=== PATIENT | female | born 1990 | race Native Hawaiian/Other Pacific Islander ===

== ENCOUNTER 2017-02-17 16:35 | Emergency (ER) | payer OTHER ==
[2017-02-17 16:51] VITALS: BP 124/67; PULSE 78; RESP 16; TEMP 98.7
[2017-02-17] MEDS ORDERED: ACETAMINOPHEN TAB 500 MG TAB PO STA (17:13)
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
--- NOTE | 2017-02-17 18:05 | XR ---
EXAMINATION TYPE: XR elbow complete RT DATE OF EXAM: 02/17/2017 5:55 PM CLINICAL HISTORY: pain TECHNIQUE: Frontal, lateral and oblique images of the right elbow are obtained. COMPARISON: None. FINDINGS: There is no acute fracture/dislocation evident of the elbow. No abnormal fat pad signs ar e seen. The overlying soft tissue appears unremarkable. IMPRESSION: There is no acute fracture or dislocation of the elbow. ICD 10 NO FRACTURE, INITIAL EVALUATION
== END 2017-02-17 18:24 | disposition home or self-care (01) ==
LOC: EC 16:35
DX: S50.11XA Contusion of right forearm, initial encounter (principal); S09.90XA Unspecified injury of head, initial encounter; M54.2 Cervicalgia; Y04.0XXA Assault by unarmed brawl or fight, initial encounter; Y00.XXXA Assault by blunt object, initial encounter; Y92.69 Other specified industrial and construction area as the place of occurrence of the external cause; Y99.0 Civilian activity done for income or pay
CPT/HCPCS: 70450; 72125; 99284

== ENCOUNTER → 2017-09-01 | Outpatient (CLI) | payer OTHER ==
[2017-09-01 12:11] VITALS: BP 137/82; PULSE 135; RESP 16; TEMP 97.8; BMI 47.0
[2017-09-01 14:14] LABS: HCT 42.7 % (34.0-46.0); HGB 13.9 gm/dL (11.4-16.0); MCHC 32.5 g/dL (31.0-37.0); MCV 92.5 fL (80.0-100.0); Mean Platelet Volume 10.6; Platelet Count 222 k/uL (150-450); RBC 4.62 m/uL (3.80-5.40); RDW 13.7 % (11.5-15.5); WBC 8.9 k/uL (3.8-10.6)
[2017-09-01 14:30] LABS: ALT 134 U/L (9-52); AST 51 U/L (14-36); Albumin 4.5 g/dL (3.5-5.0); Alkaline Phosphatase 60 U/L (38-126); Anion Gap 12 mmol/L; Blood Urea Nitrogen 12 mg/dL (7-17); Calcium 9.8 mg/dL (8.4-10.2); Carbon Dioxide 24 mmol/L (22-30); Chloride 106 mmol/L (98-107); Cholesterol 160 mg/dL (<200); Glucose 109 mg/dL (74-99); HDL Cholesterol 51 mg/dL (40-60); LDL Cholesterol,Calculated 96 mg/dL (0-99); Potassium 4.4 mmol/L (3.5-5.1); Sodium 142 mmol/L (137-145); Total Bilirubin 0.5 mg/dL (0.2-1.3); Total Protein 7.4 g/dL (6.3-8.2); Triglycerides 66 mg/dL (<150)
[2017-09-01 18:40] LABS: Iron Saturation 34.08 (12.00-45.00)
[2017-09-01 19:25] LABS: Folate, Serum 13.4 ng/mL; Vitamin D 25 Hydroxy 6.8 ng/mL (30.0-100.0)
[2017-09-01 20:43] LABS: Hemoglobin A1C 5.5 % (4.0-6.0)
[2017-09-06 11:28] LABS: Anabasine Urine <2.0 ng/mL (<2.0)
--- NOTE | 2017-10-30 16:03 | P.HPBAR ---
Bariatric H&P - History & Physicial H&P Date: 09/01/17 History & Physicial: Visit/CC: initial transfer from dr. Foy Patient initial contact: Initial weight: 127.459 kg Initial weight in pounds: 281.00 Height: 5 ft 3 in Initial BMI: 49.7 Last weight: Current weight: 120.429 kg Current weight in pounds: 265.00 Current BMI: 47.0 [place] body weight (based on NIH guidelines): 52.163 kg Excess body weight loss: 9.6% The patient is a 26 year-old F who presents for Bariatric Assessment. DATE OF SERVICE: 09/01/2017 REASON FOR CONSULTATION: Initial bariatric evaluation. HISTORY OF PRESENT ILLNESS: The patient is a 26-year-old female who presents with history of long-standing morbid obesity. Her highest weight was 293 pounds. She has tried medical supervised weight loss including Adipex where she lost initially 70 pounds. Morbid obesity runs in the family. She reports gastroesophageal reflux disease. She reports chronic diarrhea. No reports of inflammatory bowel disease. She has family history of diabetes type 2. She did have a grandfather who had multiple DVTs. She denies any food ALLERGIES. No reports of gallbladder disease in her family. No reports of Crohn's disease or ulcerative colitis or lupus. No reports of gastric or esophageal cancer. She is looking into sleeve gastrectomy. She has been using a food diary Journal for 3 months. She reports chronic lower back pain including right knee pain, thigh pain, ankle swelling, urinary incontinence and panniculitis from her morbid obesity. At her height of 5 foot 3 inches, her ideal body weight is 140 pounds. Body mass index is 52.1 to 47.0. She is 125 pounds overweight. She has lost 15 pounds in 2 months. PAST MEDICAL HISTORY: 1. Morbid obesity due to excess calories. 2. Body mass index of 52 to 47.0. 3. Osteoarthritis of the knees. 4. Osteoarthritis of the hips. 5. Dietary surveillance and counseling. 6. Gastroesophageal reflux disease. 7. Stress urinary incontinence. PAST SURGICAL HISTORY: 1. Adenoidectomy. 2. section. 3. Tonsillectomy. HOME MEDICATIONS: 1. Motrin. 2. Phentermine ALLERGIES: Denies. SOCIAL HISTORY: No active tobacco use. FAMILY HISTORY: No family history of ulcerative colitis disease or Crohn's disease. Family history of morbid obesity. No lupus in family. No reports of stomach or esophageal cancer. Family history of diabetes. REVIEW OF ORGAN SYSTEMS: CONSTITUTIONAL: At her height of 5 foot 3 inches, her ideal body weight is 140 pounds. Body mass index is 52.1 to 47.0. She is 125 pounds overweight. She has lost 15 pounds in 2 months. Her highest weight was 293 pounds. HEENT: Denies any active troubles with vision or hearing. No troubles with swallowing. ENDOCRINE: No diabetes. No hypothyroidism. CARDIOVASCULAR: No reports of palpitations or heart attacks or chest pain. History of hypertension. RESPIRATORY: Has daytime somnolence including snoring and sleep apnea. No asthma. GI: Denies any bright red blood per rectum. Does have gastroesophageal reflux disease as described above. GENITOURINARY: Has stress urinary incontinence. No reports of recent UTIs. MUSCULOSKELETAL: Has lower back pain and joint pain. Has osteoarthritis of the hips and knees. NEURO: No headaches. No seizure disorders. PSYCH: No depression without suicidal ideation. Has anxiety. RHEUMATOLOGIC: No lupus. No rheumatoid arthritis. HEMATOLOGIC: Denies any abnormal bleeding or bruising. No personal history of DVTs. SKIN: No rash. No skin cancer. PHYSICAL EXAM: VITAL SIGNS: Height 5 foot 3 inches, weight 265 pounds. BMI 47.0. Vital Signs Temp 97.8 F 09/01/17 12:08 Pulse 135 H 09/01/17 12:08 Resp 16 09/01/17 12:08 BP 137/82 09/01/17 12:08 Pulse Ox GENERAL: Well-developed in no acute distress. HEENT: No scleral icterus. Extraocular movements grossly intact. Hears conversational speech. No nasal drainage. NECK: Supple without lymphadenopathy. CHEST: Nonlabored respirations with equal bilateral excursions. CARDIOVASCULAR: Tachycardic. Distal 2+ pulses. ABDOMEN: Obese, soft, nontender, nondistended. MUSCULOSKELETAL: No clubbing, cyanosis. Gross strength 5/5 distal lower extremities. 1+ pre-tibial pitting edema. NEURO: No focal or lateralizing signs. Cranial nerves 2 through 12 grossly within normal limits. PSYCH: Appropriate affect. Alert and oriented to person, place and time. SKIN: Good skin turgor. Well perfused. ASSESSMENT: 1. Morbid obesity due to excess calories. 2. Body mass index of 52 to 47.0. 3. Osteoarthritis of the knees. 4. Osteoarthritis of the hips. 5. Dietary surveillance and counseling. 6. Tachycardia. 7. Gastroesophageal reflux disease. 8. Stress urinary incontinence. PLAN: 1. Surgical options including a band, gastric bypass, sleeve gastrectomy were described in detail. Alternatives such as gastric balloon including duodenal switch were described. 2. The [place] bariatric surgical collaborative data and outcomes calculator were described with surgical options. 3. Recommend a bariatric metabolic panel to evaluate for micro- including macronutrient deficiencies. 4. For history of daytime somnolence, recommend evaluation and treatment for sleep apnea. 5. Dietary surveillance and counseling was reviewed, I have asked increased protein intake to at least 60 grams daily. Approximately 10% weight loss recommended at least over 6 months down to 263 pounds. She has already lost 15 pounds. 6. Will need cardiac risk assessment for her tachycardia. 7. Recommend medical risk assessment. 8. Psych assessment per insurance guidelines. 9. Follow up upon completion of upper endoscopy. 10. Recommend food journal. 11. Will need urine drug screen per insurance guidelines. 12. Recommend 12-lead EKG with history of hypertensive heart disease. 13. Recommend upper endoscopy for history of esophageal reflux disease. Thank you for this consultation. Laboratory Last Values WBC 8.9 k/uL (3.8-10.6) 09/01/17 13:28 RBC 4.62 m/uL (3.80-5.40) 09/01/17 13:28 Hgb 13.9 gm/dL (11.4-16.0) 09/01/17 13:28 Hct 42.7 % (34.0-46.0) 09/01/17 13:28 MCV 92.5 fL (80.0-100.0) 09/01/17 13:28 MCH 30.0 pg (25.0-35.0) 09/01/17 13:28 MCHC 32.5 g/dL (31.0-37.0) 09/01/17 13:28 RDW 13.7 % (11.5-15.5) 09/01/17 13:28 Plt Count 222 k/uL (150-450) 09/01/17 13:28 Sodium 142 mmol/L (137-145) 09/01/17 13:28 Potassium 4.4 mmol/L (3.5-5.1) 09/01/17 13:28 Chloride 106 mmol/L (98-107) 09/01/17 13:28 Carbon Dioxide 24 mmol/L (22-30) 09/01/17 13:28 Anion Gap 12 mmol/L 09/01/17 13:28 BUN 12 mg/dL (7-17) 09/01/17 13:28 Creatinine 0.80 mg/dL (0.52-1.04) 09/01/17 13:28 Est GFR (MDRD) Af Amer >60 (>60 ml/min/1.73 sqM) 09/01/17 13:28 Est GFR (MDRD) Non-Af >60 (>60 ml/min/1.73 sqM) 09/01/17 13:28 Glucose 109 mg/dL (74-99) H 09/01/17 13:[address] Glu mg/dL 111 09/01/17 13:28 Hemoglobin A1c 5.5 % (4.0-6.0) 09/01/17 13:28 Calcium 9.8 mg/dL (8.4-10.2) 09/01/17 13:28 Iron 107 ug/dL (50-170) 09/01/17 13:28 TIBC 314 ug/dL (228-460) 09/01/17 13:28 Iron Saturation 34.08 (12.00-45.00) 09/01/17 13:28 Ferritin 64.3 ng/mL (10.0-291.0) 09/01/17 13:28 Total Bilirubin 0.5 mg/dL (0.2-1.3) 09/01/17 13:28 AST 51 U/L (14-36) H 09/01/17 13:28 ALT 134 U/L (9-52) H 09/01/17 13:28 Alkaline Phosphatase 60 U/L (38-126) 09/01/17 13:28 Total Protein 7.4 g/dL (6.3-8.2) 09/01/17 13:28 Albumin 4.5 g/dL (3.5-5.0) 09/01/17 13:28 Triglycerides 66 mg/dL (<150) 09/01/17 13:28 Cholesterol 160 mg/dL (<200) 09/01/17 13:28 LDL Cholesterol, Calc 96 mg/dL (0-99) 09/01/17 13:28 HDL Cholesterol 51 mg/dL (40-60) 09/01/17 13:28 Vitamin B1 36 ug/L (38-122) L 09/01/17 13:28 Vitamin B12 519.0 pg/mL (200.0-944.0) 09/01/17 13:28 Vitamin D 25-Hydroxy 6.8 ng/mL (30.0-100.0) L 09/01/17 13:28 Folate 13.4 ng/mL 09/01/17 13:28 TSH 0.852 mIU/L (0.465-4.680) 09/01/17 13:28 Urine Cotinine <5.0 ng/mL (<5.0) 09/01/17 13:28 Urine Nicotine <2.0 ng/mL (<2.0) 09/01/17 13:28 Urine Anabasine <2.0 ng/mL (<2.0) 09/01/17 13:28 EKG EKG PERFORMED 09/01/17 13:28 Miscellaneous Test DrugScrn,Pain Manage 09/01/17 13:51 Misc Test Result See comment 09/01/17 13:51 Thiamine is low, vitamin D is severely low, Elevated AST and ALT. Recommend correction of all nutritional deficiencies including ultrasound of the liver for fatty liver disease. Past Medical History Past Medical History: No Reported History, Osteoarthritis (OA) (Pain feet, knees ) Additional Past Medical History / Comment(s): Urinary stress incontinence History of Any Multi-Drug Resistant Organisms: None Reported Past Surgical History: Adenoidectomy, Section, Tonsillectomy Past Anesthesia/Blood Transfusion Reactions: No Reported Reaction Smoking Status: Never smoker - Past Family History Mother History Unknown: Yes Family Medical History: Diabetes Mellitus Surgical - Exam Vital Signs Temp Pulse Resp BP 97.8 F 135 H 16 137/82 09/01/17 12:08 09/01/17 12:08 09/01/17 12:08 09/01/17 12:08 Results - Labs 09/01/17 13:28 09/01/17 13:28 Bariatric Checklist Checklist: Plan: Checklist: EGD: 1. Hiatal hernia: 2. H. Pylori: HgbA1c: Vitamin D: Smoking: Never smoker Primary care physician referral: Psychiatry clearance: Cardiology clearance: Sleep study: Diet journal: VTE risk score: VTE risk level: Rehab needs at discharge:
== END | disposition home or self-care (01) ==
LOC: BARWHC3 11:49
PROVIDERS: ATTEND Surgery Plastic and Reconstructive Surgery
DX: Z48.815 Encounter for surgical aftercare following surgery on the digestive system (principal); E66.01 Morbid (severe) obesity due to excess calories; M17.0 Bilateral primary osteoarthritis of knee; M16.0 Bilateral primary osteoarthritis of hip; R00.0 Tachycardia, unspecified; K21.9 Gastro-esophageal reflux disease without esophagitis; N39.3 Stress incontinence (female) (male); M19.90 Unspecified osteoarthritis, unspecified site; E89.1 Postprocedural hypoinsulinemia; D50.8 Other iron deficiency anemias; E44.0 Moderate protein-calorie malnutrition; E55.9 Vitamin D deficiency, unspecified; E11.9 Type 2 diabetes mellitus without complications; Z68.42 Body mass index [BMI] 45.0-49.9, adult; Z90.89 Acquired absence of other organs; Z71.3 Dietary counseling and surveillance; Z79.1 Long term (current) use of non-steroidal anti-inflammatories (NSAID); Z98.890 Other specified postprocedural states
CPT/HCPCS: 84425; 80061; 80053; 82607; 82728; 82746; 83540; 83550; 84443; 85027; 82306; 80307; 83036; 93005; G0480 ×2; G0463; 80323; 80356; 99211

== ENCOUNTER 2018-03-18 22:15 | Emergency (ER) | payer OTHER ==
[2018-03-18 22:28] VITALS: RESP 18
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
[2018-03-18] MEDS ORDERED: ACET/COD 300 MG/30 MG STARTER PACK 6 TAB BTL PO STA (23:46)
[2018-03-18] MEDS ORDERED: HYDROcodone/APAP 10-325MG 1 EACH TAB PO ONE (23:46)
[2018-03-19 00:15] VITALS: BP 134/61; PULSE 71; TEMP 98
== END 2018-03-19 00:14 | disposition home or self-care (01) ==
LOC: EC 22:15
DX: S52.92XD Unspecified fracture of left forearm, subsequent encounter for closed fracture with routine healing (principal); Z79.3 Long term (current) use of hormonal contraceptives; Z79.899 Other long term (current) drug therapy; V89.2XXD Person injured in unspecified motor-vehicle accident, traffic, subsequent encounter
CPT/HCPCS: 29125; 99283

== ENCOUNTER 2018-03-24 20:12 | Emergency (ER) | payer OTHER ==
[2018-03-24 20:20] VITALS: TEMP 98.5
[2018-03-24] MEDS ORDERED: MORPHINE SULFATE 2 MG/ML SYRINGE IM STA (20:45)
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
[2018-03-24 21:54] VITALS: BP 120/75; PULSE 87; RESP 18
== END 2018-03-24 22:01 | disposition home or self-care (01) ==
LOC: EC 20:12
DX: G89.18 Other acute postprocedural pain (principal); M79.602 Pain in left arm; R20.8 Other disturbances of skin sensation; Z79.3 Long term (current) use of hormonal contraceptives
CPT/HCPCS: 99283; 96372; J2270

== ENCOUNTER → 2018-05-29 | Outpatient (CLI) | payer OTHER ==
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
== END | disposition home or self-care (01) ==
LOC: RADCTMAIN 16:45
PROVIDERS: ATTEND Family Medicine
DX: M54.6 Pain in thoracic spine (principal)
CPT/HCPCS: 72128

== ENCOUNTER 2018-07-06 05:23 | Emergency (ER) | payer OTHER ==
[2018-07-06 05:31] VITALS: BP 132/71; PULSE 112; RESP 18; TEMP 98.4
[2018-07-06] MEDS ORDERED: LIDOCAINE 1% INJ 10MG/ML (20 ML MDV) SQ ONE (05:44)
--- NOTE | 2018-07-06 06:08 | ED ---
Skin/Abscess/FB HPI - General Chief complaint: Skin/Abscess/Foreign Body Stated complaint: allergic reaction Time Seen by Provider: 07/06/18 05:32 Source: patient Mode of arrival: ambulatory Limitations: no limitations - History of Present Illness Initial comments: This is a 27-year-old female who presents emergency department for swelling of the face. The patient states that it started as a small pimple and has gradually worsened. She states that she woke up this morning and had a lot of edema on her face. She states that she has some pain where the swelling is however no pain with eye movement. She has some swelling above the eye. She denies any double vision. No fevers or chills. No headaches. She states that she had something similar to this on her nose once and that a hard yellow ball was able to be expressed from her skin which resolved the symptoms. The patient states that he has been draining some red and purulent looking fluid. No other acute complaints. - Related Data Home Medications Medication Instructions Recorded Confirmed Thuy Control 1 tab PO QAM 10/03/17 03/24/18 Previous Rx's Medication Instructions Recorded Hydrocodone/Acetaminophen [[place] 1 tab PO Q6HR PRN 3 Days #12 tab 03/18/18 7.5-325] Cephalexin [Keflex] 500 mg PO Q12HR #14 cap 07/06/18 Allergies Allergy/AdvReac Type Severity Reaction Status Date / Time No Known Allergies Allergy Verified 07/06/18 05:31 Review of Systems ROS Statement: Those systems with pertinent positive or pertinent negative responses have been documented in the HPI. ROS Other: All systems not noted in ROS Statement are negative. Past Medical History Past Medical History: GERD/Reflux, Osteoarthritis (OA), Skin Disorder Additional Past Medical History / Comment(s): Urinary stress incontinence, History of Any Multi-Drug Resistant Organisms: None Reported Past Surgical History: Adenoidectomy, Section, Tonsillectomy Additional Past Surgical History / Comment(s): left arm plate, Past Anesthesia/Blood Transfusion Reactions: Motion Sickness Additional Past Anesthesia/Blood Transfusion Reaction / Comment(s): states " felt everything with c section-epidural wore off" Past Psychological History: Depression Smoking Status: Never smoker Past Alcohol Use History: None Reported, Unable to Obtain Past Drug Use History: None Reported - Past Family History Mother History Unknown: Yes Family Medical History: Diabetes Mellitus General Exam - General Exam Comments Initial Comments: Constitutional: Awake alert Appears comfortable Head: Normocephalic atraumatic , there is erythema and edema to the right for head. There is a punctum just above the right eyebrow center. There appears to be some serosanguineous drainage from this. No obvious area of fluctuance. No induration. Eyes: no conjunctival injection No scleral icterus EOMI, no pain or tenderness with extraocular movements, pupils are 4 mm reactive bilaterally Neck: No JVD Supple Heart: Regular rate rhythm normal S1-S2 no murmurs Lungs: Clear to auscultation bilaterally No wheezing No rales Abdomen: Soft nondistended nontender Extremities: Non edematous DP pulses intact Radial pulses intact Neuro: A&Ox3 No focal neurologic deficits Psych: Appropriate mood and affect Limitations: no limitations Course Vital Signs 07/06/18 05:24 Temperature 98.4 F Pulse Rate 112 H Respiratory 18 Rate Blood Pressure 132/71 O2 Sat by Pulse 98 Oximetry Medical Decision Making - Medical Decision Making This is a 27-year-old female presents emergency department for facial swelling. The patient appears to have facial cellulitis however it's related to this lesion just above her eyebrow. A very small incision was made over the punctum to try to express what was underneath the skin. There is a very thick purulent looking material that was unable to be expressed. I did not want to extend the incision any further or do any further exploration of the wound. I told the patient that I would recommend Keflex and warm compresses for now. She is to follow-up with her primary doctor tomorrow. If she continues to have symptoms or they worsen she may require Lasix surgery to evaluate the wound and to excise whatever is under the skin. The patient states that she understands and agrees to this plan. All questions were answered. Disposition Clinical Impression: Facial cellulitis Disposition: HOME SELF-CARE Condition: Stable Instructions: Cellulitis (ED) Prescriptions: Cephalexin [Keflex] 500 mg PO Q12HR #14 cap Is patient prescribed a controlled substance at d/c from ED?: No Referrals: Mamadou Lange MD [Primary Care Provider] - 1-2 days
== END 2018-07-06 06:15 | disposition home or self-care (01) ==
LOC: EC 05:23
DX: L03.211 Cellulitis of face (principal); Z79.3 Long term (current) use of hormonal contraceptives; Z87.2 Personal history of diseases of the skin and subcutaneous tissue
CPT/HCPCS: 99283

== ENCOUNTER 2019-01-15 12:55 | Emergency (ER) | payer OTHER ==
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
[2019-01-15 14:34] LABS: Basophils % (A) 0 %; Eosinophils # (A) 0.2 k/uL (0-0.7); Eosinophils % (A) 2 %; HCT 46.2 % (34.0-46.0); HGB 14.9 gm/dL (11.4-16.0); Lymphocytes # (A) 1.3 k/uL (1.0-4.8); Lymphocytes % (A) 11 %; MCHC 32.2 g/dL (31.0-37.0); MCV 90.1 fL (80.0-100.0); Monocytes # (A) 0.5 k/uL (0-1.0); Monocytes % (A) 4 %; Neutrophils # (A) 9.8 k/uL (1.3-7.7); Neutrophils % (A) 83 %; Platelet Count 261 k/uL (150-450); RBC 5.13 m/uL (3.80-5.40); RDW 12.8 % (11.5-15.5); WBC 11.8 k/uL (3.8-10.6)
[2019-01-15 14:40] LABS: ALT 20 U/L (9-52); AST 46 U/L (14-36); Albumin 4.6 g/dL (3.5-5.0); Alkaline Phosphatase 81 U/L (38-126); Anion Gap 10 mmol/L; Blood Urea Nitrogen 15 mg/dL (7-17); Calcium 9.4 mg/dL (8.4-10.2); Carbon Dioxide 21 mmol/L (22-30); Chloride 108 mmol/L (98-107); Glucose 104 mg/dL (74-99); Sodium 139 mmol/L (137-145); Total Bilirubin 1.1 mg/dL (0.2-1.3); Total Protein 8.1 g/dL (6.3-8.2)
[2019-01-15 15:03] LABS: Appearance,Urine Clear (Clear); Bilirubin,Urine Negative (Negative); Blood,Urine Trace (Negative); Color,Urine Yellow; Glucose,Urine (UA) Negative (Negative); Ketones,Urine Negative (Negative); Leukocyte Esterase,Urine Negative (Negative); Mucus,Urine Occasional /hpf; Nitrite,Urine Negative (Negative); PH, Urine 5.5 (5.0-8.0); Protein,Urine Negative (Negative); RBC,Urine 3 /hpf (0-5); Specific Gravity,Urine 1.026 (1.001-1.035); Squamous Epithelial Cell,Urine 2 /hpf (0-4); Urobilinogen,Urine <2.0 mg/dL (<2.0); WBC,Urine 1 /hpf (0-5)
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
--- NOTE | 2019-01-15 15:30 | XR ---
EXAMINATION TYPE: XR shoulder complete RT DATE OF EXAM: 01/15/2019 COMPARISON: NONE HISTORY: Pain TECHNIQUE: Three views are submitted. FINDINGS: The osseous structures are intact. There is no acute fracture or dislocation. The AC joint is maint ained. IMPRESSION: 1. No acute process.
[2019-01-15 16:21] VITALS: BP 139/72; PULSE 71; RESP 19; TEMP 97.7
== END 2019-01-15 16:28 | disposition home or self-care (01) ==
LOC: EC 12:55
DX: S46.811A Strain of other muscles, fascia and tendons at shoulder and upper arm level, right arm, initial encounter (principal); R07.89 Other chest pain; R51 Headache; M19.90 Unspecified osteoarthritis, unspecified site; Z79.3 Long term (current) use of hormonal contraceptives; Z79.899 Other long term (current) drug therapy; Z96.698 Presence of other orthopedic joint implants; V49.49XA Driver injured in collision with other motor vehicles in traffic accident, initial encounter; Y93.89 Activity, other specified; Y92.410 Unspecified street and highway as the place of occurrence of the external cause
CPT/HCPCS: 36415; 80053; 84484; 85025; 81001; 81025; 73030; 72125; 70450; 71260; 74177; 99285; Q9967

== ENCOUNTER → 2019-01-17 | Outpatient (CLI) | payer OTHER ==
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
[2019-01-18 09:46] VITALS: BP 150/91; PULSE 94; RESP 16; TEMP 98; BMI 52.9
== END ==
LOC: BARWHC3 14:29
PROVIDERS: ATTEND Surgery Plastic and Reconstructive Surgery
DX: E66.01 Morbid (severe) obesity due to excess calories (principal); M17.0 Bilateral primary osteoarthritis of knee; M16.0 Bilateral primary osteoarthritis of hip; K21.9 Gastro-esophageal reflux disease without esophagitis; Z71.3 Dietary counseling and surveillance; N39.3 Stress incontinence (female) (male); Z68.43 Body mass index [BMI] 50.0-59.9, adult; Z79.899 Other long term (current) drug therapy; Z90.89 Acquired absence of other organs; Z98.890 Other specified postprocedural states
CPT/HCPCS: 99211

== ENCOUNTER 2022-09-14 18:27 | Emergency (ER) | payer OTHER ==
[2022-09-14 18:34] VITALS: RESP 18
[2022-09-14] MEDS ORDERED: ASPIRIN 81 MG PO STA (18:40)
--- NOTE | 2022-09-14 18:42 | ED ---
Chest Pain HPI - General Source: patient, EMS Mode of arrival: EMS Limitations: no limitations - History of Present Illness MD Complaint: chest pain -: hour(s) Onset: during rest Pain Location: substernal Pain Radiation: back Severity: severe Quality: aching Consistency: now resolved (Partially) Improves With: nothing Worsens With: nothing Treatments Prior to Arrival: none <Ruben Brito - Last Filed: 09/14/22 18:49> <Lauren Worhtington - Last Filed: 09/15/22 00:36> - General Chief Complaint: Chest Pain Stated Complaint: chest pain Time Seen by Provider: 09/14/22 18:31 - History of Present Illness Initial Comments: This patient is a 31-year-old woman who presents with complaint that she is having substernal chest pain radiating to her back. It came on approximately an hour ago while she was watching television and holding her son. She has not noted worsening or relieving factors. The pain has for the most part subsided though she states she does feel a little in her back still. She did declined analgesic at initial history and physical. No accompanying anginal symptoms. (Ruben Brito) - Related Data Home Medications Medication Instructions Recorded Confirmed Cholecalciferol [Vitamin D3 (25 25 mcg PO DAILY 09/14/22 09/14/22 Mcg = 1000 Iu)] Liraglutide [Victoza 3-Vel] 1.2 mg SQ DAILY PRN 09/14/22 09/14/22 Allergies Allergy/AdvReac Type Severity Reaction Status Date / Time No Known Allergies Allergy Verified 09/14/22 20:46 Review of Systems ROS Other: All systems not noted in ROS Statement are negative. Constitutional: Denies: fever, chills Respiratory: Denies: cough, dyspnea Cardiovascular: Reports: chest pain. Denies: palpitations, dyspnea on exertion, edema, syncope Gastrointestinal: Denies: abdominal pain, nausea, vomiting, diarrhea Genitourinary: Denies: dysuria, hematuria Musculoskeletal: Denies: back pain Skin: Denies: rash Neurological: Denies: headache, weakness, numbness <Ruben Brito - Last Filed: 09/14/22 18:49> ROS Other: All systems not noted in ROS Statement are negative. <Lauren Worthington - Last Filed: 09/15/22 00:36> ROS Statement: Those systems with pertinent positive or pertinent negative responses have been documented in the HPI. EKG Findings - EKG Results: EKG: interpreted by AIDEND, sinus rhythm (882 bpm), normal axis, normal QRS, normal ST/T - IN, Pacemaker, Normal: Normal tracing: normal tracing <Ruben Brito Filed: 09/14/22 18:49> Past Medical History Past Medical History: GERD/Reflux, Osteoarthritis (OA), Skin Disorder Additional Past Medical History / Comment(s): Urinary stress incontinence, History of Any Multi-Drug Resistant Organisms: None Reported Past Surgical History: Adenoidectomy, Section, Tonsillectomy Additional Past Surgical History / Comment(s): left arm plate, Past Anesthesia/Blood Transfusion Reactions: Motion Sickness Additional Past Anesthesia/Blood Transfusion Reaction / Comment(s): states "felt everything with c section-epidural wore off" Past Psychological History: Depression Past Alcohol Use History: None Reported, Unable to Obtain Past Drug Use History: Marijuana - Past Family History Mother History Unknown: Yes Family Medical History: Diabetes Mellitus <Ruben Brito Filed: 09/14/22 18:49> General Exam Limitations: no limitations General appearance: alert, in no apparent distress Head exam: Present: atraumatic, normocephalic Eye exam: Present: normal appearance. Absent: scleral icterus, conjunctival injection Respiratory exam: Present: normal lung sounds bilaterally. Absent: respiratory distress, wheezes, rales, rhonchi, stridor, chest wall tenderness Cardiovascular Exam: Present: regular rate, normal rhythm, normal heart sounds. Absent: systolic murmur, diastolic murmur, rubs, gallop GI/Abdominal exam: Present: soft. Absent: distended, tenderness, guarding, rebound, rigid, mass Extremities exam: Present: normal inspection, normal capillary refill. Absent: pedal edema, calf tenderness Back exam: Present: normal inspection. Absent: CVA tenderness (R), CVA tenderness (L) Neurological exam: Present: alert Skin exam: Present: warm, dry, intact, normal color. 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 Zee. She did presents with complaint of intermittent chest pain. Laboratory studies were reviewed by myself and remarkable for a d-dimer of 0.71. Troponin was negative. Patient was sent for a CT of her chest which demonstrated no PE. She did have cholelithiasis. Patient is evaluated by myself with no symptoms consistent with cholelithiasis. Did inform the patient of her results. Recommended outpatient surgery evaluation for management of her cholelithiasis. Additionally recommended follow-up with cardiology for an echo and Holter monitoring. Patient understood this and was agreeable. She will be discharged home. Instructed to return for any new or worsening symptoms (Lauren Worthington) Disposition <Ruben Brito - Last Filed: 09/14/22 18:49> Is patient prescribed a controlled substance at d/c from ED?: No Time of Disposition: 22:36 <Lauren Worthington - Last Filed: 09/15/22 00:36> Clinical Impression: Chest pain, Cholelithiasis Disposition: HOME SELF-CARE Condition: Stable Instructions (If sedation given, give patient instructions): Chest Pain (ED) Additional Instructions: I recommend that you follow up with your primary care doctor and have an echo and Holter monitoring. Your PCP may refer you to cardiology. You should also establish care with a surgeon for your gallstones. Return to the emergency department for any new or worsening symptoms Referrals: Mamadou Lange MD [Primary Care Provider] - 1-2 days Albert Foy MD [STAFF PHYSICIAN] - 1-2 days [facility] [Provider Group] - 1-2 days
[2022-09-14 19:50] LABS: ALT 34 U/L (4-34)
[2022-09-14 19:51] LABS: AST 39 U/L (14-36); African American GFR (CKD) >90 (>60 ml/min/1.73 sqM); Albumin 4.2 g/dL (3.5-5.0); Alkaline Phosphatase 81 U/L (38-126); Amylase 39 U/L (30-110); Anion Gap 8 mmol/L; Blood Urea Nitrogen 14 mg/dL (7-17); Calcium 8.7 mg/dL (8.4-10.2); Carbon Dioxide 24 mmol/L (22-30); Chloride 107 mmol/L (98-107); Glucose 107 mg/dL (74-99); Lipase 108 U/L (23-300); Non-African American GFR(CKD) >90 (>60 ml/min/1.73 sqM); Potassium 3.9 mmol/L (3.5-5.1); Sodium 139 mmol/L (137-145); Total Bilirubin 0.2 mg/dL (0.2-1.3); Total Protein 6.5 g/dL (6.3-8.2)
--- NOTE | 2022-09-14 19:52 | XR ---
EXAMINATION TYPE: XR chest 2V DATE OF EXAM: 09/14/2022 7:29 PM COMPARISON: Chest radiographs from and 04/05/2016 TECHNIQUE: XR chest 2V Frontal and lateral views of the chest. CLINICAL INDICATION:Female, 31 years old with history of Chest Pain; FINDINGS: Lungs/Pleura: Low lung volumes are present. There is no evidence of pleural effusion, focal consolida tion, or pneumothorax. Pulmonary vascularity: Unremarkable. Heart/mediastinum: Cardiomediastinal silhouette is unremarkable. Musculoskeletal: No acute osseous pathology. IMPRESSION: No acute cardiopulmonary disease/process.
[2022-09-14 19:59] LABS: Basophils % (A) 0 %; Eosinophils # (A) 0.1 k/uL (0-0.7); Eosinophils % (A) 1 %; HCT 42.9 % (34.0-46.0); HGB 14.1 gm/dL (11.4-16.0); Lymphocytes # (A) 1.5 k/uL (1.0-4.8); Lymphocytes % (A) 15 %; MCH 30.2 pg (25.0-35.0); MCHC 32.8 g/dL (31.0-37.0); Mean Platelet Volume 10.2; Monocytes # (A) 0.5 k/uL (0-1.0); Monocytes % (A) 5 %; Neutrophils # (A) 7.9 k/uL (1.3-7.7); Neutrophils % (A) 78 %; Platelet Count 211 k/uL (150-450); RBC 4.67 m/uL (3.80-5.40); RDW 13.3 % (11.5-15.5); WBC 10.1 k/uL (3.8-10.6)
[2022-09-14 20:05] LABS: Partial Thromboplastin Time 25.1 sec (22.0-30.0); Prothrombin Time 10.3 sec (9.0-12.0)
--- NOTE | 2022-09-14 21:55 | CT ---
EXAMINATION TYPE: CT chest angio for PE CT DLP: 989 mGycm, Automated exposure control for dose reduction was used. DATE OF EXAM: 09/14/2022 9:43 PM COMPARISON: Chest radiograph from same day. Multiple CTs 01/15/2019. CLINICAL INDICATION:Female, 31 years old with history of chest pain, possible PE; Chest pain, possibl e PE TECHNIQUE/CONTRAST: CTA scan of the thorax is performed with IV Contrast, patient injected with 80cc mL of Isovue 370, pu lmonary embolism protocol. MIP images are created and reviewed. FINDINGS: Pulmonary Artery: There is no evidence for a filling defect within the pulmonary vasculature to sugge st acute pulmonary embolism. The pulmonary artery is of normal size. Lungs/Pleura: No evidence of focal consolidation, pleural effusion or pneumothorax. Airway: Large airways are patent. Heart: Heart is within normal limits for size.. Vasculature: No evidence of aortic aneurysm. Mediastinum: No gross evidence of adenopathy. Musculoskeletal: No acute osseous abnormalities, mild multilevel disc degeneration changes throughout the spine. Soft Tissues: Unremarkable. Lower neck: No significant findings. Upper Abdomen: Gallstone in the gallbladder neck IMPRESSION: 1. No evidence of pulmonary embolism. 2. Cholelithiasis
[2022-09-14 22:31] VITALS: BP 124/79; PULSE 75; TEMP 97.4
== END 2022-09-14 22:44 | disposition home or self-care (01) ==
LOC: EC 18:27
DX: R07.2 Precordial pain (principal); K80.20 Calculus of gallbladder without cholecystitis without obstruction; F32.A Depression, unspecified; F12.90 Cannabis use, unspecified, uncomplicated
CPT/HCPCS: 36415; 85379; 80053; 82150; 83690; 83735; 84484; 85025; 85610; 85730; 71046; 71275; 99285; Q9967; 93005

== ENCOUNTER 2023-08-06 18:05 | Emergency (ER) | payer OTHER ==
[2023-08-06 18:34] VITALS: BP 135/85; PULSE 89; RESP 18; TEMP 98
--- NOTE | 2023-08-06 19:18 | ED ---
General Adult HPI - General Chief complaint: GI Bleed Stated complaint: 9 weeks preg-vag bleeding Time Seen by Provider: 08/06/23 18:44 Source: patient, RN notes reviewed Mode of arrival: ambulatory Limitations: no limitations - History of Present Illness Initial comments: 32-year-old male presents emergency Department with chief complaint of vaginal vs rectal bleeding today. She believes she is around 9 weeks . LMP 05/18/23 or 06/26/23 patient is unsure. She states that she went to have a bowel movement and noticed some blood on the toilet paper when she wiped. This occurred three times today. She states that she thinks the blood is from the rectum but is not certain. She does admit to some abdominal cramping which is typical for her but she states that it is worse today than it usually is. She does admit to recent constipation. Denies rectal pain or discomfort. Denies fever, chills, recent illness. She reports that she is scheduled to see Dr. Lee at [facility] on 08/16/23. She has not been to an OB yet this . - Related Data Home Medications Medication Instructions Recorded Confirmed Cholecalciferol [Vitamin D3 (25 25 mcg PO DAILY 09/14/22 09/14/22 Mcg = 1000 Iu)] Liraglutide [Victoza 3-Vel] 1.2 mg SQ DAILY PRN 09/14/22 09/14/22 Previous Rx's Medication Instructions Recorded Cephalexin [Keflex] 500 mg PO BID #10 cap 08/06/23 Allergies Allergy/AdvReac Type Severity Reaction Status Date / Time Sulfa (Sulfonamide Allergy Rash/Hives Verified 08/06/23 18:33 Antibiotics) Review of Systems ROS Statement: Those systems with pertinent positive or pertinent negative responses have been documented in the HPI. ROS Other: All systems not noted in ROS Statement are negative. Past Medical History Past Medical History: GERD/Reflux, Osteoarthritis (OA), Skin Disorder Additional Past Medical History / Comment(s): Urinary stress incontinence, History of Any Multi-Drug Resistant Organisms: None Reported Past Surgical History: Adenoidectomy, Section, Tonsillectomy Additional Past Surgical History / Comment(s): left arm plate, Past Anesthesia/Blood Transfusion Reactions: Motion Sickness Additional Past Anesthesia/Blood Transfusion Reaction / Comment(s): states "felt everything with c section-epidural wore off" Past Psychological History: Depression Smoking Status: Never smoker Past Alcohol Use History: None Reported, Unable to Obtain Past Drug Use History: Marijuana - Past Family History Mother History Unknown: Yes Family Medical History: Diabetes Mellitus General Exam Limitations: no limitations General appearance: alert, in no apparent distress Head exam: Present: atraumatic, normocephalic, normal inspection Eye exam: Present: normal appearance, PERRL, EOMI. Absent: scleral icterus, conjunctival injection, periorbital swelling ENT exam: Present: normal exam, mucous membranes moist Respiratory exam: Present: normal lung sounds bilaterally. Absent: respiratory distress, wheezes, rales, rhonchi, stridor Cardiovascular Exam: Present: regular rate, normal rhythm, normal heart sounds. Absent: systolic murmur, diastolic murmur, rubs, gallop, clicks GI/Abdominal exam: Present: soft, normal bowel sounds. Absent: distended, tenderness, guarding, rebound, rigid Rectal exam: Present: normal inspection, normal rectal tone, heme (-) stool External exam: Present: normal external exam. Absent: erythema, swelling Course Vital Signs 08/06/23 18:31 Temperature 98 F Pulse Rate 89 Respiratory 18 Rate Blood Pressure 135/85 O2 Sat by Pulse 98 Oximetry Medical Decision Making - Medical Decision Making Was pt. sent in by a medical professional or institution (JORDI Bellamy, AVIATION OPERATIONS SPECIALIST, urgent care, hospital, or shelter...) When possible be specific @ -No Did you speak to anyone other than the patient for history (EMS, parent, family, police, friend...)? What history was obtained from this source @ -No Did you review nursing and triage notes (agree or disagree)? Why? @ -I reviewed and agree with nursing and triage notes Were old charts reviewed (outside hosp., previous admission, EMS record, old EKG, old radiological studies, urgent care reports/EKG's, shelter records)? Report findings @ -No old charts were reviewed Differential Diagnosis (chest pain, altered mental status, abdominal pain women, abdominal pain men, vaginal bleeding, weakness, fever, dyspnea, syncope, headache, dizziness, GI bleed, back pain, seizure, CVA, palpatations, mental health, musculoskeletal)? @ -Differential GI Bleed: Esophageal varices, aortoenteric fistula, Denise-Wheeler, gastritis, peptic ulcer disease, diverticulosis, inflammatory bowel disease, hemorrhoids, fissure, colitis, malignancy, Meckels diverticulum, this is not meant to be an all- inclusive list. EKG interpreted by me (3pts min.). @ -None X-rays interpreted by me (1pt min.). @ -None done CT interpreted by me (1pt min.). @ -None done U/S interpreted by me (1pt. min.). @ -Ultrasound obtained which showed single live intrauterine What testing was considered but not performed or refused? (CT, X-rays, U/S, labs)? Why? @ -None What meds were considered but not given or refused? Why? @ -None Did you discuss the management of the patient with other professionals (professionals i.e. , PA, AVIATION OPERATIONS SPECIALIST, lab, RT, psych nurse, drug abuse social worker, ingot buggy operator, teacher, police patrol officer, briefcase sewer)? Give summary @ -No Was smoking cessation discussed for >3mins.? @ -No Was critical care preformed (if so, how long)? @ -No Were there social determinants of health that impacted care today? How? (Homelessness, low income, unemployed, alcoholism, drug addiction, transportation, low edu. Level, literacy, decrease access to med. care, alf, rehab)? @ -No Was there de-escalation of care discussed even if they declined (Discuss DNR or withdrawal of care, Hospice)? DNR status @ -No What co-morbidities impacted this encounter? (DM, HTN, Smoking, COPD, CAD, Cancer, CVA, ARF, Chemo, Hep., AIDS, mental health diagnosis, sleep apnea, morbid obesity)? @ -None Was patient admitted / discharged? Hospital course, mention meds given and route, prescriptions, significant lab abnormalities, going to OR and other pertinent info. @ -Discharged. Patient presented to emergency department chief complaint of rectal vs vaginal bleeding in . Patient has not had any more episodes since the visit. GI and Performed which showed no active bleeding. Hemoccult negative. CBC shows WBC 12.4 likely reactive , hemoglobin 13.1; CMP within normal limits, hCG 69331.6; UA showed trace of the sinuses, 5 WBCs, 12 squamous epithelial cells, occasional bacteria. Ultrasound obtained which shows single live intrauterine . Discussed these results with the patient who expressed understanding. Patient will be discharged home with OB follow-up as scheduled. Patient stable at time of discharge. Case discussed with Dr. Hay. Undiagnosed new problem with uncertain prognosis? @ -[No] Drug Terpy requiring intensive monitoring for toxicity (Heparin, Nitro, Insulin, Cardizem)? @ -[No] Were ay rocedures done? @ -[No] Diagnoissymptom? @ -[rectal bleding, asymptomatic bacturia in ] Acute, orChronic, or Acute on Chronic? @ -[acute] Uncmplicted (without systemic symptoms) or Complicated (systemic symptoms)? @ -uncomplicated Side effects of treatment? @ -[No] Exaceraton, Progression, or Severe Exacerbation? @ -[No] Poses treat to life or bodily function? How? (Chest pain, USA, ME, pneumonia, PE, COPD, DKA, ARF, appy, cholecystitis, CVA, Diverticulitis, Homicidal, Suicidal, threat to staff... and all critical care pts) @ -[No] - Lab Data Result diagrams: 08/06/23 19:29 08/06/23 19:29 Lab Results 08/06/23 08/06/23 08/06/23 Range/Units 19:29 19:29 19:29 WBC 12.4 H (3.8-10.6) k/uL RBC 4.32 (3.80-5.40) m/uL Hgb 13.1 (11.4-16.0) gm/dL Hct 40.4 (34.0-46.0) % MCV 93.6 (80.0-100.0) fL MCH 30.4 (25.0-35.0) pg MCHC 32.5 (31.0-37.0) g/dL RDW 12.7 (11.5-15.5) % Plt Count 216 (150-450) k/uL MPV 9.4 Neutrophils % 74 % Lymphocytes % 19 % Monocytes % 5 % Eosinophils % 2 % Basophils % 0 % Neutrophils # 9.1 H (1.3-7.7) k/uL Lymphocytes # 2.3 (1.0-4.8) k/uL Monocytes # 0.6 (0-1.0) k/uL Eosinophils # 0.2 (0-0.7) k/uL Basophils # 0.0 (0-0.2) k/uL Sodium 138 (137-145) mmol/L Potassium 3.7 (3.5-5.1) mmol/L Chloride 104 (98-107) mmol/L Carbon Dioxide 24 (22-30) mmol/L Anion Gap 10 mmol/L BUN 15 (7-17) mg/dL Creatinine 0.54 (0.52-1.04) mg/dL Est GFR (CKD-EPI)AfAm >90 (>60 ml/min/1.73 sqM) Est GFR (CKD-EPI)NonAf >90 (>60 ml/min/1.73 sqM) Glucose 86 (74-99) mg/dL Calcium 9.2 (8.4-10.2) mg/dL Total Bilirubin 0.2 (0.2-1.3) mg/dL AST 21 (14-36) U/L ALT 20 (4-34) U/L Alkaline Phosphatase 47 (38-126) U/L Total Protein 6.8 (6.3-8.2) g/dL Albumin 4.1 (3.5-5.0) g/dL HCG, Quant 27190.6 mIU/mL Urine Color Yellow Urine Appearance Cloudy H (Clear) Urine pH 5.5 (5.0-8.0) Ur Specific [place] 1.030 (1.001-1.035) Urine Protein Trace H (Negative) Urine Glucose (UA) Negative (Negative) Urine Ketones Negative (Negative) Urine Blood Negative (Negative) Urine Nitrite Negative (Negative) Urine Bilirubin Negative (Negative) Urine Urobilinogen <2.0 (<2.0) mg/dL Ur Leukocyte Esterase Trace H (Negative) Urine RBC 1 (0-5) /hpf Urine WBC 5 (0-5) /hpf Ur Squamous Epith Cells 12 H (0-4) /hpf Amorphous Sediment Rare H (None) /hpf Urine Bacteria Occasional H (None) /hpf Hyaline Casts 6 H (0-2) /lpf Urine Mucus Few H (None) /hpf Stool Occult Blood (Negative) Blood Type Blood Type Recheck Bld Type Recheck Status 08/06/23 08/06/23 Range/Units 19:42 20:03 WBC (3.8-10.6) k/uL RBC (3.80-5.40) m/uL Hgb (11.4-16.0) gm/dL Hct (34.0-46.0) % MCV (80.0-100.0) fL MCH (25.0-35.0) pg MCHC (31.0-37.0) g/dL RDW (11.5-15.5) % Plt Count (150-450) k/uL MPV Neutrophils % % Lymphocytes % % Monocytes % % Eosinophils % % Basophils % % Neutrophils # (1.3-7.7) k/uL Lymphocytes # (1.0-4.8) k/uL Monocytes # (0-1.0) k/uL Eosinophils # (0-0.7) k/uL Basophils # (0-0.2) k/uL Sodium (137-145) mmol/L Potassium (3.5-5.1) mmol/L Chloride (98-107) mmol/L Carbon Dioxide (22-30) mmol/L Anion Gap mmol/L BUN (7-17) mg/dL Creatinine (0.52-1.04) mg/dL Est GFR (CKD-EPI)AfAm (>60 ml/min/1.73 sqM) Est GFR (CKD-EPI)NonAf (>60 ml/min/1.73 sqM) Glucose (74-99) mg/dL Calcium (8.4-10.2) mg/dL Total Bilirubin (0.2-1.3) mg/dL AST (14-36) U/L ALT (4-34) U/L Alkaline Phosphatase (38-126) U/L Total Protein (6.3-8.2) g/dL Albumin (3.5-5.0) g/dL HCG, Quant mIU/mL Urine Color Urine Appearance (Clear) Urine pH (5.0-8.0) Ur Specific [place] (1.001-1.035) Urine Protein (Negative) Urine Glucose (UA) (Negative) Urine Ketones (Negative) Urine Blood (Negative) Urine Nitrite (Negative) Urine Bilirubin (Negative) Urine Urobilinogen (<2.0) mg/dL Ur Leukocyte Esterase (Negative) Urine RBC (0-5) /hpf Urine WBC (0-5) /hpf Ur Squamous Epith Cells (0-4) /hpf Amorphous Sediment (None) /hpf Urine Bacteria (None) /hpf Hyaline Casts (0-2) /lpf Urine Mucus (None) /hpf Stool Occult Blood Negative (Negative) Blood Type A Positive Blood Type Recheck A Pos Bld Type Recheck Status No Disposition Clinical Impression: Constipation, Asymptomatic bacteriuria during Disposition: HOME SELF-CARE Condition: Stable Instructions (If sedation given, give patient instructions): Rectal Bleeding (ED) Additional Instructions: Please follow up with your OB as scheduled. Docusate (Colace) is a safe stool softener that you may utilize. Return to the emergency department for new or worsening symptoms. Prescriptions: Cephalexin [Keflex] 500 mg PO BID #10 cap Is patient prescribed a controlled substance at d/c from ED?: No Referrals: Mamadou Lange MD [Primary Care Provider] - 1-2 days
[2023-08-06 19:56] LABS: Basophils % (A) 0 %; Eosinophils # (A) 0.2 k/uL (0-0.7); Eosinophils % (A) 2 %; HCT 40.4 % (34.0-46.0); HGB 13.1 gm/dL (11.4-16.0); Lymphocytes # (A) 2.3 k/uL (1.0-4.8); Lymphocytes % (A) 19 %; MCH 30.4 pg (25.0-35.0); MCHC 32.5 g/dL (31.0-37.0); MCV 93.6 fL (80.0-100.0); Mean Platelet Volume 9.4; Monocytes # (A) 0.6 k/uL (0-1.0); Monocytes % (A) 5 %; Neutrophils # (A) 9.1 k/uL (1.3-7.7); Neutrophils % (A) 74 %; Platelet Count 216 k/uL (150-450); RBC 4.32 m/uL (3.80-5.40); RDW 12.7 % (11.5-15.5); WBC 12.4 k/uL (3.8-10.6)
[2023-08-06 20:01] LABS: ALT 20 U/L (4-34); AST 21 U/L (14-36); African American GFR (CKD) >90 (>60 ml/min/1.73 sqM); Albumin 4.1 g/dL (3.5-5.0); Alkaline Phosphatase 47 U/L (38-126); Anion Gap 10 mmol/L; Blood Urea Nitrogen 15 mg/dL (7-17); Calcium 9.2 mg/dL (8.4-10.2); Carbon Dioxide 24 mmol/L (22-30); Chloride 104 mmol/L (98-107); Glucose 86 mg/dL (74-99); Non-African American GFR(CKD) >90 (>60 ml/min/1.73 sqM); Potassium 3.7 mmol/L (3.5-5.1); Sodium 138 mmol/L (137-145); Total Bilirubin 0.2 mg/dL (0.2-1.3); Total Protein 6.8 g/dL (6.3-8.2)
[2023-08-06 20:17] LABS: Amorphous Sediment,Urine Rare /hpf; Appearance,Urine Cloudy (Clear); Bacteria,Urine Occasional /hpf; Bilirubin,Urine Negative (Negative); Blood,Urine Negative (Negative); Color,Urine Yellow; Glucose,Urine (UA) Negative (Negative); Hyaline Casts,Urine 6 /lpf (0-2); Ketones,Urine Negative (Negative); Leukocyte Esterase,Urine Trace (Negative); Mucus,Urine Few /hpf; Nitrite,Urine Negative (Negative); PH, Urine 5.5 (5.0-8.0); Protein,Urine Trace (Negative); RBC,Urine 1 /hpf (0-5); Squamous Epithelial Cell,Urine 12 /hpf (0-4); Urobilinogen,Urine <2.0 mg/dL (<2.0); WBC,Urine 5 /hpf (0-5)
[2023-08-06 20:41] LABS: HCG,Quantitative Serum 22470.6 mIU/mL
--- NOTE | 2023-08-06 21:08 | US ---
EXAMINATION TYPE: Transabdominal DATE OF EXAM: 08/06/2023 8:55 PM COMPARISON: NONE CLINICAL INDICATION: Female, 32 years old with history of cramping, bleeding; Patient states rectal b leeding. No prior ultrasound with this . Portable exam EXAM PERFORMED: Transabdominal (TA) EXAM MEASUREMENTS: GESTATIONAL AGE / DATING Physician Established: Not yet established Dates by LMP: LMP unknown Dates by First Scan: No previous this is first scan Dates by Current Scan for: (6 weeks/6 days) EDC: 03/26/2024 MATERNAL ANATOMY Uterus: 9.5 x 6.3 x 5.2 cm Right Ovary: 3.0 x 2.7 x 2.2 cm Left Ovary: 3.2 x 2.8 x 2.3 cm Post CDS / Adnexa: No free fluid Presence of free fluid: no Presence of corpus luteal cyst: left ovary = 2.6 cm Presence of subchorionic bleed: no GESTATION / SURVEY CRL: 0.8 cm (6 weeks/6 days) MSD: Seen, not measured Yolk Sac (normal less than 6mm): 2.4 mm Heart Rate: 122 bpm Rhythm: Normal IUP: Viable IUP Date of LMP: Unknown, Beta HcG (if available): Not available at this time GS, YS and CRL visualized within endometrial cavity. IMPRESSION: Single live intrauterine gestation with ultrasound age 6 weeks 6 days.
== END 2023-08-06 22:59 | disposition home or self-care (01) ==
LOC: EC 18:05
DX: O99.611 Diseases of the digestive system complicating pregnancy, first trimester (principal); K62.5 Hemorrhage of anus and rectum; O23.91 Unspecified genitourinary tract infection in pregnancy, first trimester; R82.71 Bacteriuria; O99.321 Drug use complicating pregnancy, first trimester; F12.90 Cannabis use, unspecified, uncomplicated; Z3A.01 Less than 8 weeks gestation of pregnancy; Z88.2 Allergy status to sulfonamides
CPT/HCPCS: 36415; 76801; 80053; 81001; 82272; 84702; 85025; 86900; 86901; 99285

== ENCOUNTER 2023-08-21 01:42 | Emergency (ER) | payer OTHER ==
[2023-08-21 01:50] VITALS: BP 123/78; PULSE 90; RESP 18; TEMP 98.3
[2023-08-21 03:05] LABS: Amorphous Sediment,Urine Rare /hpf; Appearance,Urine Cloudy (Clear); Bacteria,Urine Rare /hpf; Bilirubin,Urine Negative (Negative); Blood,Urine Large (Negative); Calcium Oxalate Crystals,Urine Moderate /hpf; Color,Urine Light Yellow; Glucose,Urine (UA) Negative (Negative); Hyaline Casts,Urine 8 /lpf (0-2); Ketones,Urine Negative (Negative); Leukocyte Esterase,Urine Moderate (Negative); Mucus,Urine Occasional /hpf; Nitrite,Urine Negative (Negative); PH, Urine 5.5 (5.0-8.0); Protein,Urine Negative (Negative); RBC,Urine 7 /hpf (0-5); Specific Gravity,Urine 1.027 (1.001-1.035); Squamous Epithelial Cell,Urine 16 /hpf (0-4); Urobilinogen,Urine <2.0 mg/dL (<2.0); WBC,Urine 7 /hpf (0-5)
--- NOTE | 2023-08-21 03:44 | ED ---
Female Urogenital HPI - General Chief complaint: Vaginal Bleeding Stated complaint: 9wks Bleeding Time Seen by Provider: 08/21/23 01:49 EST Source: patient Mode of arrival: ambulatory Limitations: no limitations - History of Present Illness Initial comments: 32-year-old female presenting to the ED with a chief complaint of vaginal bleeding. Patient is A0 approximately 9 weeks. Patient reports that she went to bed and woke up with some vaginal bleeding and some lower abdominal cramping. No dizziness or lightheadedness. Patient reports she has had 2 ultrasounds that showed IUP as ultrasound here on 08/06/23 showing single live IUP approximately 6 weeks of age. No other complaints. - Related Data Home Medications Medication Instructions Recorded Confirmed Cholecalciferol [Vitamin D3 (25 25 mcg PO DAILY 09/14/22 09/14/22 Mcg = 1000 Iu)] Liraglutide [Victoza 3-Vel] 1.2 mg SQ DAILY PRN 09/14/22 09/14/22 Previous Rx's Medication Instructions Recorded Cephalexin [Keflex] 500 mg PO BID #10 cap 08/06/23 Cephalexin [Keflex] 500 mg PO Q6HR 20 Days #5 cap 08/21/23 Allergies Allergy/AdvReac Type Severity Reaction Status Date / Time Sulfa (Sulfonamide Allergy Rash/Hives Verified 08/21/23 01:46 EST Antibiotics) Review of Systems ROS Statement: Those systems with pertinent positive or pertinent negative responses have been documented in the HPI. ROS Other: All systems not noted in ROS Statement are negative. Past Medical History Past Medical History: GERD/Reflux, Osteoarthritis (OA), Skin Disorder Additional Past Medical History / Comment(s): Urinary stress incontinence, History of Any Multi-Drug Resistant Organisms: None Reported Past Surgical History: Adenoidectomy, Section, Tonsillectomy Additional Past Surgical History / Comment(s): left arm plate, Past Anesthesia/Blood Transfusion Reactions: Motion Sickness Additional Past Anesthesia/Blood Transfusion Reaction / Comment(s): states "felt everything with c section-epidural wore off" Past Psychological History: Depression Smoking Status: Never smoker Past Alcohol Use History: None Reported, Unable to Obtain Past Drug Use History: Marijuana - Past Family History Mother History Unknown: Yes Family Medical History: Diabetes Mellitus General Exam Limitations: no limitations General appearance: alert, in no apparent distress Respiratory exam: Present: normal lung sounds bilaterally Cardiovascular Exam: Present: regular rate, normal rhythm GI/Abdominal exam: Present: soft Neurological exam: Present: alert, oriented X3 Skin exam: Present: warm, dry Course Vital Signs 08/21/23 01:44 EST Temperature 98.3 F Pulse Rate 90 Respiratory 18 Rate Blood Pressure 123/78 O2 Sat by Pulse 100 Oximetry Medical Decision Making - Medical Decision Making Was pt. sent in by a medical professional or institution (, PA, DISTRIBUTION SUPERINTENDENT, urgent care, hospital, or fpc...) When possible be specific @ -No Did you speak to anyone other than the patient for history (EMS, parent, family, police, friend...)? What history was obtained from this source @ -No Did you review nursing and triage notes (agree or disagree)? Why? @ -I reviewed and agree with nursing and triage notes Were old charts reviewed (outside hosp., previous admission, EMS record, old EKG, old radiological studies, urgent care reports/EKG's, fpc records)? Report findings @ -No old charts were reviewed Differential Diagnosis (chest pain, altered mental status, abdominal pain women, abdominal pain men, vaginal bleeding, weakness, fever, dyspnea, syncope, head ache, dizziness, GI bleed, back pain, seizure, CVA, palpatations, mental health, musculoskeletal)? @ -Differential Vaginal Bleeding: Spontaneous , threatened , molar , ectopic , bloody show, incompetent cervix, abruptioplacenta, placenta previa, uterine rupture, dysfunctional uterine bleeding, hemorrhage, uterine fibroids, this is not meant to be an all-inclusive list. EKG interpreted by me (3pts min.). @ -As above X-rays interpreted by me (1pt min.). @ -None done CT interpreted by me (1pt min.). @ -None done U/S interpreted by me (1pt. min.). @ -None done What testing was considered but not performed or refused? (CT, X-rays, U/S, labs)? Why? @ -Case discussed with Dr. Rascon. Due to patient having two prior US confirming IUP, recommending workup only consisting of UA and urine hCG. What meds were considered but not given or refused? Why? @ -None Did you discuss the management of the patient with other professionals (professionals i.e. , PA, DISTRIBUTION SUPERINTENDENT, lab, RT, psych nurse, geriatric social worker, box sealing inspector, teacher, labor relations officer, case therapist)? Give summary @ -No Was smoking cessation discussed for >3mins.? @ -No Was critical care preformed (if so, how long)? @ -No Were there social determinants of health that impacted care today? How? (Homelessness, low income, unemployed, alcoholism, drug addiction, transportation, low edu. Level, literacy, decrease access to med. care, prison, rehab)? @ -No Was there de-escalation of care discussed even if they declined (Discuss DNR or withdrawal of care, Hospice)? DNR status @ -No What co-morbidities impacted this encounter? (DM, HTN, Smoking, COPD, CAD, Cancer, CVA, ARF, Chemo, Hep., AIDS, mental health diagnosis, sleep apnea, morbid obesity)? @ - Was patient admitted / discharged? Hospital course, mention meds given and route, prescriptions, significant lab abnormalities, going to OR and other pertinent info. @ -Discharge 32-year-old female presenting to the ED with some vaginal bleeding abdominal cramping. She has had 2 ultrasounds that showed IUP. Urine sample obtained which appears contaminated in no overt findings consistent with infection however patient is concerned with UTI and therefore provided prescription for Keflex. At this time, vital signs stable, afebrile. Discharged home and advised follow-up with INSPECTOR CRYSTAL. Discussed return precautions with patient who verbalizes agreement. Undiagnosed new problem with uncertain prognosis? @ -No Drug Therapy requiring intensive monitoring for toxicity (Heparin, Nitro, Insulin, Cardizem)? @ -No Were any procedures done? @ -No Diagnosis/symptom? @ -Vaginal bleeding Acute, or Chronic, or Acute on Chronic? @ -Acute Uncomplicated (without systemic symptoms) or Complicated (systemic symptoms)? @ -Uncomplicated Side effects of treatment? @ -No Exacerbation, Progression, or Severe Exacerbation? @ -No Poses a threat to life or bodily function? How? (Chest pain, USA, MA, pneumonia, PE, COPD, DKA, ARF, appy, cholecystitis, CVA, Diverticulitis, Homicidal, Suicidal, threat to staff... and all critical care pts) @ -No - Lab Data Lab Results 11/05/23 11/05/23 Range/Units 02:05 02:05 Urine Color Light Yellow Urine Appearance Cloudy H (Clear) Urine pH 5.5 (5.0-8.0) Ur Specific [place] 1.027 (1.001-1.035) Urine Protein Negative (Negative) Urine Glucose (UA) Negative (Negative) Urine Ketones Negative (Negative) Urine Blood Large H (Negative) Urine Nitrite Negative (Negative) Urine Bilirubin Negative (Negative) Urine Urobilinogen <2.0 (<2.0) mg/dL Ur Leukocyte Esterase Moderate H (Negative) Urine RBC 7 H (0-5) /hpf Urine WBC 7 H (0-5) /hpf Ur Squamous Epith Cells 16 H (0-4) /hpf Calcium Oxalate Crystal Moderate H (None) /hpf Amorphous Sediment Rare H (None) /hpf Urine Bacteria Rare H (None) /hpf Hyaline Casts 8 H (0-2) /lpf Urine Mucus Occasional H (None) /hpf Urine HCG, Qual Detected (Not Detectd) Disposition Clinical Impression: Vaginal bleeding Disposition: HOME SELF-CARE Condition: Good Additional Instructions: Please return to the Emergency Department if symptoms worsen or any other concerns. Follow up with your OBGYN. Prescriptions: Cephalexin [Keflex] 500 mg PO Q6HR 20 Days #5 cap Is patient prescribed a controlled substance at d/c from ED?: No Referrals: Mamadou Lange MD [Primary Care Provider] - 1-2 days Time of Disposition: 03:48
== END 2023-08-21 04:00 | disposition home or self-care (01) ==
LOC: EC 01:42
DX: O46.91 Antepartum hemorrhage, unspecified, first trimester (principal); O99.321 Drug use complicating pregnancy, first trimester; F12.90 Cannabis use, unspecified, uncomplicated; Z86.59 Personal history of other mental and behavioral disorders; Z88.2 Allergy status to sulfonamides; Z3A.09 9 weeks gestation of pregnancy
CPT/HCPCS: 81001; 81025; 99284

== ENCOUNTER 2024-02-20 11:47 | Outpatient (CLI) | payer OTHER ==
[2024-02-20 12:52] VITALS: BP 141/65; PULSE 110; RESP 18; TEMP 98.1
== END 2024-02-20 12:20 | disposition home or self-care (01) ==
LOC: FBPOP 11:47
PROVIDERS: ATTEND Obstetrics & Gynecology Obstetrics
DX: O24.415 Gestational diabetes mellitus in pregnancy, controlled by oral hypoglycemic drugs (principal); Z3A.34 34 weeks gestation of pregnancy; Z88.2 Allergy status to sulfonamides
CPT/HCPCS: 59025

== ENCOUNTER 2024-02-27 08:23 | Outpatient (CLI) | payer OTHER | END 2024-02-27 08:58 | disposition home or self-care (01) | LOC: FBPOP 08:23 | PROVIDERS: ATTEND Obstetrics & Gynecology Obstetrics | DX: O24.415 Gestational diabetes mellitus in pregnancy, controlled by oral hypoglycemic drugs (principal); Z3A.28 28 weeks gestation of pregnancy; Z88.0 Allergy status to penicillin | CPT/HCPCS: 59025 ==

== ENCOUNTER 2024-03-05 09:57 | Outpatient (CLI) | payer OTHER ==
[2024-03-05 11:18] VITALS: BP 134/77; PULSE 104; RESP 16; TEMP 97.6
== END 2024-03-05 10:29 | disposition home or self-care (01) ==
LOC: FBPOP 09:57
PROVIDERS: ATTEND Obstetrics & Gynecology Obstetrics
DX: O24.415 Gestational diabetes mellitus in pregnancy, controlled by oral hypoglycemic drugs (principal); Z88.2 Allergy status to sulfonamides; Z3A.36 36 weeks gestation of pregnancy
CPT/HCPCS: 59025

== ENCOUNTER 2024-03-19 10:39 | Outpatient (CLI) | payer OTHER ==
[2024-03-19 13:28] VITALS: BP 121/59; PULSE 101; RESP 18; TEMP 96.4
== END 2024-03-19 11:27 | disposition home or self-care (01) ==
LOC: FBPOP 10:39
PROVIDERS: ATTEND Obstetrics & Gynecology Obstetrics
DX: O24.415 Gestational diabetes mellitus in pregnancy, controlled by oral hypoglycemic drugs (principal); Z88.2 Allergy status to sulfonamides; Z3A.38 38 weeks gestation of pregnancy
CPT/HCPCS: 59025

== ENCOUNTER 2024-03-26 09:58 | Inpatient (IN) | payer OTHER ==
[2024-03-23 10:38] VITALS: BMI 58.4
[2024-03-26] MEDS ORDERED: OXYTOCIN 10 UNIT/ML 1 ML VIAL IM PRN (11:04)
[2024-03-26] MEDS ORDERED: TRANEXAMIC 1,000 MG/100ML-NACL 1,000 MG in EMPTY BAG 1 BAG IV PRN (11:04)
[2024-03-26] MEDS ORDERED: miSOPROStoL 200 MCG TAB PO PRN (11:04)
[2024-03-26] MEDS ORDERED: METHYLERGONOVINE 0.2 MG/ML 1 ML AMP IM PRN (11:04)
[2024-03-26] MEDS ORDERED: CARBOPROST TROMETHAMINE 250 MCG/ML 1 ML AMP IM PRN (11:04)
[2024-03-26] MEDS: LACTATED RINGERS 1,000 ML IV ONE (11:05)
[2024-03-26 11:08] LABS: Glucose,Whole Blood 87 mg/dL (70-110)
[2024-03-26] MEDS: CITRIC ACID-SODIUM CITRATE 15 ML CUP PO ONE (11:38)
[2024-03-26] MEDS: ceFAZolin 3 GM in SODIUM CHLORIDE 0.9% 100 ML IVPB ONE (11:45)
[2024-03-26 11:51] LABS: Basophils % (A) 0 %; Eosinophils # (A) 0.1 k/uL (0-0.7); Eosinophils % (A) 1 %; HCT 43.2 % (34.0-46.0); HGB 13.9 gm/dL (11.4-16.0); Lymphocytes # (A) 1.5 k/uL (1.0-4.8); Lymphocytes % (A) 11 %; MCH 29.8 pg (25.0-35.0); MCHC 32.1 g/dL (31.0-37.0); MCV 92.8 fL (80.0-100.0); Mean Platelet Volume 10.7; Monocytes # (A) 0.7 k/uL (0-1.0); Monocytes % (A) 5 %; Neutrophils # (A) 11.1 k/uL (1.3-7.7); Neutrophils % (A) 82 %; Platelet Count 165 k/uL (150-450); RBC 4.66 m/uL (3.80-5.40); RDW 13.9 % (11.5-15.5); WBC 13.5 k/uL (3.8-10.6)
[2024-03-26] MEDS ORDERED: KETOROLAC 15 MG/ML 1 ML VIAL ONE (12:07)
[2024-03-26] MEDS ORDERED: ePHEDrine 50 MG/ML 1 ML VIAL ONE (12:07)
[2024-03-26] MEDS ORDERED: MORPHINE SULFATE (PF) 0.3 MG/0.3 ML SYR ONE (12:07)
[2024-03-26] MEDS ORDERED: OXYTOCIN 30 UNITS/500 ML NS BAG IV ONE (12:07)
[2024-03-26] MEDS ORDERED: PHENYLEPHRINE-0.9% NACL SYG 1,000 MCG/10 ML SYRINGE ONE (12:07)
[2024-03-26] MEDS ORDERED: diphenhydrAMINE 25 MG CAP PO PRN (13:20)
[2024-03-26] MEDS ORDERED: diphenhydrAMINE 50 MG/ML 1 ML VIAL IVP PRN ×2 (13:20)
[2024-03-26] MEDS ORDERED: NALOXONE 0.4 MG/ML 1 ML VIAL IV PRN (13:20)
[2024-03-26] MEDS ORDERED: ONDANSETRON 4 MG/2 ML VIAL IVP PRN (13:20)
[2024-03-26] MEDS ORDERED: ZOLPIDEM 5 MG TAB PO PRN (13:20)
[2024-03-26] MEDS ORDERED: SIMETHICONE 80 MG CHEWABLE PO PRN (13:20)
[2024-03-26] MEDS ORDERED: diphenhydrAMINE 50 MG CAP PO PRN (13:20)
[2024-03-26] MEDS ORDERED: METOCLOPRAMIDE 5 MG/ML 2 ML VIAL IVP PRN (13:20)
--- NOTE | 2024-03-26 13:23 | P.OP ---
Date of Procedure: 03/26/24 Preoperative Diagnosis: IUP at 39 weeks, history of x 1, desires repeat Postoperative Diagnosis: Same Procedure(s) Performed: Repeat section Anesthesia: spinal Surgeon: Ivana Lee Bench Hand Machine #1: Elizabeth Orozco Estimated Blood Loss (ml): 510 IV fluids (ml): 500 Urine output (ml): 400 Pathology: none sent Condition: stable Disposition: observation Indications for Procedure: History of section x 1 desires repeat Operative Findings: Viable female delivered 1231, weight 8-11 Description of Procedure: The patient was prepped and draped in the usual fashion after spinal anesthesia was administered by anesthesia department. Pannus straps were then placed on the abdomen to elevate the pannus away from the operating field. A Pfannenstiel incision was made and extended of the abdominal cavity without difficulty. The bladder peritoneum was elevated and incised and reflected distally. A 2 cm inci paramjit was made in the transverse plane of the lower uterine segment to enter the uterus at which time clear fluid was noted. The incision was extended in both directions using the bandage scissors. The head was encountered within the field and delivered up and through the incision where the nose and mouth were thoroughly suctioned. Remainder of the infant was delivered onto the surgical field where the cord was doubly clamped, cut, and the was passed for resuscitative measures with weight and Apgars as noted above. The placenta was delivered manually, intact, and was grossly normal with a grossly normal three-vessel cord. The uterus was exteriorized and the interior cavity of the uterus swept of any remaining placental and membranous fragments with a laparotomy sponge. The margins of the incision were grasped with Allis clamps and the incision closed in 2 layers. First layer was a running locking layer of 0 chromic catgut from margin to margin followed by a second layer of imbricating 0 Vicryl from margin to margin. Any small points of bleeding were then made hemostatic with the Bovie. Once hemostasis was achieved, the posterior cul-de-sac was suctioned with a guard and the uterine and ovarian findings are as noted above. The uterus was replaced within the abdominal cavity and the gutters swept of any remaining blood fluid or clot. The incision was again reexamined and hemostasis was noted to be excellent. Any small point of bleeding were made hemostatic with the Bovie. Once hemostasis was achieved the parietal peritoneum was loosely reapproximated. The layer of muscles were examined and made hemostatic with the Bovie. Attention was then turned to the fascia which was closed with 2 running stitches of 0 Vicryl proceeding from the lateral margins to the midpoint. The subcutaneous tissues were irrigated, made hemostatic with the Bovie, and reapproximated with a running stitch of 3-0 Vicryl. The skin was reapproximated with 4-0 Vicryl. Estimated blood loss for the case was approximately 510 mL. All sponge instrument and needle counts are correct. There were no complications. The patient tolerated the procedure well and proceeded to the recovery room in stable condition. Both mother and infant are resting comfortably in recovery.
[2024-03-26] MEDS: ACETAMINOPHEN IV (For NPO) 1,000 MG in EMPTY BAG 1 BAG IVPB SCH (14:10)
[2024-03-26 17:24] LABS: Glucose,Whole Blood 100 mg/dL (70-110)
[2024-03-26] MEDS: LACTATED RINGERS 1,000 ML IV SCH (18:12)
[2024-03-26] MEDS: SENNOSIDES-DOCUSATE SODIUM 1 EACH TAB PO SCH (20:46)
[2024-03-26] MEDS: IBUPROFEN IV 800 MG in SODIUM CHLORIDE 0.9% 250 ML IV SCH (20:46)
[2024-03-27] MEDS: ACETAMINOPHEN TAB 500 MG TAB PO SCH (00:05)
[2024-03-27] MEDS: IBUPROFEN 600 MG TAB PO SCH (02:49)
[2024-03-27 06:41] LABS: Basophils % (A) 0 %; Eosinophils # (A) 0.1 k/uL (0-0.7); Eosinophils % (A) 1 %; HCT 35.3 % (34.0-46.0); HGB 11.2 gm/dL (11.4-16.0); Lymphocytes # (A) 1.1 k/uL (1.0-4.8); Lymphocytes % (A) 11 %; MCH 29.7 pg (25.0-35.0); MCHC 31.8 g/dL (31.0-37.0); MCV 93.2 fL (80.0-100.0); Mean Platelet Volume 10.5; Monocytes # (A) 0.6 k/uL (0-1.0); Monocytes % (A) 6 %; Neutrophils # (A) 8.2 k/uL (1.3-7.7); Neutrophils % (A) 81 %; Platelet Count 141 k/uL (150-450); RBC 3.79 m/uL (3.80-5.40); RDW 14.1 % (11.5-15.5); WBC 10.1 k/uL (3.8-10.6)
--- NOTE | 2024-03-27 07:16 | P.PN ---
Progress Note - Text 03/27/26 607am 34-year-old female status post with spinal Duramorph. Patient seen and evaluated for postop pain control, she has a VAS of 0 with no complaints of nausea vomiting or pruritus
[2024-03-27 08:49] LABS: Glucose,Whole Blood 113 mg/dL (70-110)
--- NOTE | 2024-03-27 08:57 | P.PNOBGPC ---
Subjective - Subjective Principal diagnosis: post op day 1, repeat section Interval history: Patient is noting headache at this morning. Patient states upon rising she noted throbbing behind her eyes and headache. Vital signs were noted to be stable, CBC was noted to be normal slight drop in hemoglobin to 11 postoperatively. Patient appears well upon examination this morning. She has had 1 spontaneous void. Lochia is noted to be minimal to moderate. She is breast-feeding without difficulty. Patient reports: Reports appetite normal, Reports voiding normally, Reports ambulating normally : doing well, nursing well Objective - Vital Signs Latest vital signs: Vital Signs Temp Pulse Resp BP Pulse Ox 03/27/24 08:00 98.0 F 62 16 102/60 99 03/27/24 03:59 89 18 118/77 03/27/24 00:00 98.2 F 98 18 120/72 97 03/26/24 20:00 98 F 93 18 111/71 97 03/26/24 15:05 103 H 17 114/66 98 03/26/24 14:50 85 17 129/60 97 03/26/24 14:35 82 16 144/66 98 03/26/24 14:20 89 17 123/59 98 03/26/24 14:05 91 17 121/67 97 03/26/24 13:50 99 17 133/61 97 03/26/24 13:35 95 17 138/61 97 03/26/24 13:20 95 17 115/53 96 03/26/24 13:05 102 H 16 136/61 96 03/26/24 10:28 96.5 F L 93 17 128/75 97 Intake and Output 03/26/24 03/27/24 03/27/24 22:59 06:59 14:59 Intake Total 900 600 Output Total 1577 200 Balance -677 400 Intake: IV 900 Oral 600 Output: Urine 900 200 Uretheral (Castillo) 500 Output, Quantitative 677 Blood Loss Other: Voiding Method Indwelling Catheter - Exam Extremities: Present: normal, edema Abdomen: Present: normal appearance, soft Incision: Present: normal, dry Uterus: Present: normal, firm - Labs Labs: Abnormal Lab Results - Last 24 Hours (Table) 03/26/24 03/27/24 03/27/24 Range/Units 11:06 06:18 08:47 WBC 13.5 H (3.8-10.6) k/uL RBC 3.79 L (3.80-5.40) m/uL Hgb 11.2 L (11.4-16.0) gm/dL Plt Count 141 L (150-450) k/uL Neutrophils # 11.1 H 8.2 H (1.3-7.7) k/uL POC Glucose (mg/dL) 113 H (70-110) mg/dL Assessment and Plan (1) Term Current Visit: Yes Status: Acute Code(s): Z34.90 - ENCNTR FOR SUPRVSN OF NORMAL , UNSP, UNSP TRIMESTER SNOMED Code(s): 67951155 (2) Morbid obesity Current Visit: No Status: Acute Code(s): E66.01 - MORBID (SEVERE) OBESITY DUE TO EXCESS CALORIES SNOMED Code(s): 567154162 (3) Previous section Current Visit: Yes Status: Acute Code(s): Z98.891 - HISTORY OF UTERINE SCAR FROM PREVIOUS SURGERY SNOMED Code(s): 546225706 (4) Status post section Current Visit: Yes Status: Acute Code(s): Z98.891 - HISTORY OF UTERINE SCAR FROM PREVIOUS SURGERY SNOMED Code(s): 062378570 Plan: Patient is noting headache this morning, suspicious for spinal headache. Multiple attempts were made to obtain a spinal anesthesia. Patient is counseled on concerns. She will monitor symptoms this morning, ibuprofen and caffeine is given to patient. If no relief will consult anesthesia for evaluation.
--- NOTE | 2024-03-27 21:46 | P.HPIM ---
History of Present Illness H&P Date: 03/27/24 This is 33 years old female status post, the section under spinal anesthesia, patient currently complaining of severe headache, the headache is positional in sitting and standing improved with lying supine, symptoms did not improved with the conservative treatment, IV fluids , caffeine, and Tylenol, patient having severe symptoms . Past Medical History Past Medical History: Diabetes Mellitus, GERD/Reflux, Hypertension, Osteoarthritis (OA), Skin Disorder Additional Past Medical History / Comment(s): Urinary stress incontinence. Ecz landon. Gestational Diabetes. Hx high blood pressure with last . Hx migrianes, no longer has. History of Any Multi-Drug Resistant Organisms: MRSA Date of last positivie culture/infection: 2016 MDRO Source:: Right eyebrow Past Surgical History: Adenoidectomy, Section, Orthopedic Surgery, Tonsillectomy Additional Past Surgical History / Comment(s): left arm plate, Past Anesthesia/Blood Transfusion Reactions: Previous Problems w/ Anesthesia, Motion Sickness Additional Past Anesthesia/Blood Transfusion Reaction / Comment(s): States "felt everything with [id number] wore off." Past Psychological History: Depression Smoking Status: Former smoker Past Alcohol Use History: None Reported Additional Past Alcohol Use History / Comment(s): Quit smoking in 2019. Past Drug Use History: None Reported - Past Family History Mother History Unknown: Yes Family Medical History: Diabetes Mellitus Medications and Allergies Home Medications Medication Instructions Recorded Confirmed Type Aspirin [Adult Low Dose Aspirin EC] 81 mg PO DAILY 02/20/24 03/26/24 History Vit No.179/Iron/Folic 1 each PO DAILY 02/20/24 03/26/24 History [ Tablet] metFORMIN HCL 500 mg PO DAILY 02/20/24 03/26/24 History Allergies Allergy/AdvReac Type Severity Reaction Status Date / Time Sulfa (Sulfonamide Allergy Rash/Hives Verified 03/26/24 10:28 Antibiotics) Physical Exam Vitals: Vital Signs Temp Pulse Resp BP Pulse Ox 03/27/24 19:37 98 F 92 18 120/77 97 03/27/24 16:00 98.1 F 103 H 16 134/87 98 03/27/24 12:00 98.3 F 100 16 132/68 99 03/27/24 08:00 98.0 F 62 16 102/60 99 03/27/24 03:59 89 18 118/77 03/27/24 00:00 98.2 F 98 18 120/72 97 Intake and Output 03/27/24 03/27/24 03/27/24 06:59 14:59 22:59 Intake Total 600 Output Total 200 Balance 400 Intake: Oral 600 Output: Urine 200 Other: # Voids 0 2 Physical Examinations : -Constitutiona : Cooperative , not in acute distress . -HEENT : nech : supple , no Lymphadenopathy , normal thyroid size . : eyes : no ptosis , no icterus, no photophobia . - neurologic : Cranial nerve II to XII intact , no focal neurological deffecit . -psychatric : alert , oriented X 3 , appropriate affect , intact judgment and insight - musculoskeltal : Lumber spine moter stegnth lower extremities ,thigh and legs 5/5 Right side , 5/5 Left side Results CBC & Chem 7: 03/27/24 06:18 Labs: Abnormal Lab Results - Last 24 Hours (Table) 03/27/24 03/27/24 Range/Units 06:18 08:47 RBC 3.79 L (3.80-5.40) m/uL Hgb 11.2 L (11.4-16.0) gm/dL Plt Count 141 L (150-450) k/uL Neutrophils # 8.2 H (1.3-7.7) k/uL POC Glucose (mg/dL) 113 H (70-110) mg/dL Thrombosis Risk Factor Assmnt - Choose All That Apply Each Factor Represents 1 point: Obesity (BMI >25), or Thrombosis Risk Factor Assessment Total Risk Factor Score: 2 Thrombosis Risk Factor Assessment Level: Low Risk Assessment and Plan Assessment: Assessment and plan=1-postdural puncture headache. she will be good candidate to have lumbar epi dural blood patch Time with Patient: Less than 30
--- NOTE | 2024-03-27 21:49 | P.PCN ---
Date of Procedure: 03/27/24 Procedure(s) Performed: Procedure= lumbar epidural blood patch. Preoperative diagnosis= postdural puncture headache. Postoperative diagnoses= post dural puncture headache. Indication for the procedure= patient developed headache after spinal esthesia ,the headache persists in spite of conservative treatment, there is no focal neurological deficit, no fever, no neck stiffness, headache worse with sitting and standing position, and improved with lying supine, for this reason patient is a good candidate for epidural blood patch. anesthesia= local infiltration with lidocaine 1% 3 mL. Complications= none. Description of the procedure= patient identified risks and benefits of the procedure explained to the patient and patient agreed with proceeding, vital signs monitored during the procedure Back lumbar area prepped with chlorhexidine 3 times, then drape applied the local infiltration of the skin and subcutaneous tissue with lidocaine 1% 3 mL at L5-S1 interlaminar space then 18-gauge 6 inches long Tuohy needle advanced slowly at L4-5 interlaminar space, There was positive loss of resistance to normal saline, no heme no paresthesia no cerebrospinal fluid, then after that he ML of the blood taken from the patient under strict sterile technique, and after the left antecubital area prepped with a chlorhexidine 3 times using 20-gauge Angiocath, and under sterile technique the 20 ML of the blood taken from the patient injected in the epidural space after negative aspiration for heme or CSF and there was no paresthesia then the needle removed intact the skin cleaned and the , bandage applied . The procedure was done in [place] [id number] in obstetric suite
[2024-03-28 09:19] VITALS: BP 133/81; PULSE 101; RESP 18; TEMP 99
--- NOTE | 2024-03-28 13:31 | P.DS ---
Providers Date of admission: 03/26/24 09:58 Expected date of discharge: 03/28/24 Attending physician: Ivana Lee Primary care physician: Mamadou Lange - Discharge Diagnosis(es) (1) Term Current Visit: Yes Status: Acute (2) Morbid obesity Current Visit: No Status: Acute (3) Previous section Current Visit: Yes Status: Acute (4) Status post section Current Visit: Yes Status: Acute Hospital Course: 33 yo G2 now P2 that presented to labor and delivery for scheduled RCS. She had a prior c section and desires repeat. She has been receing routine prenatla care. For full detail and this patient please see the operative report. Patient was taken to the operating suite for repeat section, this was completed without complication. viable female infant delivered at 1231, 8-11. For full details on the surgery please see the operative report. she did have a spinal headache which resolved after a blood patch was placed by the anesthesia department on post op day 1. She is doing well today on this post operative day number 2. She is ambulating and voiding without difficulty, lochia is minimal, pain is well controlled Patient Condition at Discharge: Good Plan - Discharge Summary Discharge Rx Participant: Yes New Discharge Prescriptions: No Action metFORMIN HCL 500 mg PO DAILY Aspirin [Adult Low Dose Aspirin EC] 81 mg PO DAILY Vit No.179/Iron/Folic [ Tablet] 1 each PO DAILY Discharge Medication List Aspirin [Adult Low Dose Aspirin EC] 81 mg PO DAILY 02/20/24 [History] Vit No.179/Iron/Folic [ Tablet] 1 each PO DAILY 02/20/24 [ History] metFORMIN HCL 500 mg PO DAILY 02/20/24 [History] Follow up Appointment(s)/Referral(s): Ivana Lee DO [Doctor of Osteopathic Medicine] - 05/08/24 1:00 pm (Post C/S Appointment 04-10-2024 at 11:30am) Patient Instructions/Handouts: (DC), (GEN) Activity/Diet/Wound Care/Special Instructions: no tub baths or intercourse until 6 weeks post . over the counter motrin for pain, 600mg or 3 tabs q 6 hours follow up in 2 weeks for routine post operative appointment Discharge Disposition: HOME SELF-CARE
== END 2024-03-28 13:50 | disposition home or self-care (01) | DRG 540 ==
LOC: 4FBP 09:58
PROVIDERS: ADMIT Family Medicine; ATTEND Obstetrics & Gynecology Obstetrics
PROC: 10D00Z1 Extraction of Products of Conception, Low, Open Approach (ICD-10-PCS; principal; 2024-03-26 12:00)
PROC: 3E0R3GC Introduction of Other Therapeutic Substance into Spinal Canal, Percutaneous Approach (ICD-10-PCS; 2024-03-27)
DX: O34.211 Maternal care for low transverse scar from previous cesarean delivery (principal); O99.214 Obesity complicating childbirth; E66.01 Morbid (severe) obesity due to excess calories; O99.62 Diseases of the digestive system complicating childbirth; O89.4 Spinal and epidural anesthesia-induced headache during the puerperium; K21.9 Gastro-esophageal reflux disease without esophagitis; O24.92 Unspecified diabetes mellitus in childbirth; Z79.84 Long term (current) use of oral hypoglycemic drugs; Z87.891 Personal history of nicotine dependence; Z79.82 Long term (current) use of aspirin; Z86.59 Personal history of other mental and behavioral disorders; Z88.2 Allergy status to sulfonamides; Z3A.39 39 weeks gestation of pregnancy; Z37.0 Single live birth
CPT/HCPCS: 85025; 86850; 86900; 86901

== ENCOUNTER → 2024-07-20 | Outpatient (CLI) | payer OTHER ==
--- NOTE | 2024-07-20 14:48 | CT ---
EXAMINATION TYPE: CT abdomen pelvis w con CT DLP: 2534.4 mGycm, Automated exposure control for dose reduction was used. DATE OF EXAM: 07/20/2024 2:36 PM COMPARISON: CT chest abdomen pelvis 01/15/2019 CLINICAL INDICATION:Female, 33 years old with history of S31.100S UNSP OPN WND ABD WALL, R UPPER Q W/ O PENE; infection at incision site of TECHNIQUE: Standard CT of the abdomen and pelvis following the administration of 100 cc of Isovue 3 00 IV contrast material. Coronal and sagittal reformats were performed. FINDINGS: Limited examination due to patient's body habitus. LOWER CHEST: Unremarkable ABDOMEN LIVER: Unremarkable GALLBLADDER AND BILE DUCTS: Cholelithiasis with dominant 2.8 cm gallstone. No surrounding inflammator y changes. No biliary ductal dilatation. PANCREAS: Unremarkable. SPLEEN: Unremarkable. ADRENAL GLANDS: Unremarkable. KIDNEYS AND URETERS: No evidence of hydronephrosis or renal calculus. The kidneys enhance symmetrical ly. PELVIS BLADDER: Incompletely distended but grossly unremarkable. REPRODUCTIVE: Unremarkable. No evidence for fistulous tract from the abdominal wall. ABDOMEN & PELVIS STOMACH AND BOWEL: Stomach and duodenum are unremarkable. No focal bowel wall thickening or surroundi ng inflammatory changes and enteric contrast reaches the mid small bowel. No evidence of bowel obstru ction. PERITONEUM: No evidence of pneumoperitoneum or free fluid. VASCULATURE: No evidence of aortic aneurysm. MUSCULOSKELETAL: No acute osseous abnormalities LYMPH NODES: No evidence for lymphadenopathy. SOFT TISSUE/ABDOMINAL WALL: Postsurgical changes from with a hyperdense 1.7 cm region at th e skin surface at the pannus. Minimal surrounding inflammatory changes. No gas. No extension of this tract or inflammatory changes past the abdominal wall intraperitoneal. IMPRESSION: 1. 1.7 cm hyperdense region in anterior lower abdominal subcutaneous tissues extending to the skin s urface at scar. Favored to represent a hematoma/wound. No acute intra-abdominal/pelvic proc ess. No intra-abdominal fluid collections or inflammation. No evidence for intra-abdominal fistula. C an be further evaluated with ultrasound as clinically indicated. 2. Cholelithiasis. [facility], , 07/20/2024 2:45 PM
== END | disposition home or self-care (01) ==
LOC: RADCTMAIN 12:43
PROVIDERS: ATTEND Family Medicine
DX: S31.1 Open wound of abdominal wall without penetration into peritoneal cavity (principal); K80.20 Calculus of gallbladder without cholecystitis without obstruction
CPT/HCPCS: 74177; Q9967